=== PATIENT | female | born 1990 | race Caucasian/White ===

== ENCOUNTER 2017-11-25 01:52 | Emergency (ER) | payer MEDICAID ==
[~2017-11-25] VITALS: Ht 167.6 cm; Wt 66.0 kg
[~2017-11-25 01:52] MED LIST: FLUT16SP10 NAS; HYDR-569 PO; IBUP-1985 PO; PHEN-824 PO
[2017-11-25] MEDS ORDERED: HYDR-3965 PO (03:03)
[2017-11-25] MEDS ORDERED: IBUP-1984 PO (03:04)
[2017-11-25] MEDS ORDERED: HYDROcodone/acetaminophen 10/325mg tab PO ONE (03:05)
[2017-11-25 03:25] VITALS: BP 119/58
== END 2017-11-25 03:25 | disposition home or self-care (01) ==
LOC: ER 01:52
DX: R10.2 Pelvic and perineal pain (principal); J45.909 Unspecified asthma, uncomplicated; Z85.89 Personal history of malignant neoplasm of other organs and systems; Z88.5 Allergy status to narcotic agent; Z79.899 Other long term (current) drug therapy
CPT/HCPCS: 99283

== ENCOUNTER 2018-01-23 18:33 | Emergency (ER) | payer MEDICAID ==
[~2018-01-23] VITALS: Ht 167.6 cm; Wt 64.5 kg
[2018-01-23 18:52] VITALS: BP 120/72
[2018-01-23 19:19] LABS: CLARITY,URINE CLOUDY (Clear); COLOR,URINE YELLOW (Yellow); GLUCOSE, URINE NEGATIVE (Neg); KETONES,URINE NEGATIVE (Neg); LEUKOCYTE ESTERASE ,URINE MODERATE (Neg); NITRITES, URINE POSITIVE (Neg); OCCULT BLOOD,URINE SMALL (Neg); PROTEIN,URINE 100 mg/dl (Neg); UROBILINOGEN,URINE 0.2 E.U/dL (0.2-1.0)
[2018-01-23 19:21] LABS: URINE HCG NEGATIVE (NEG)
[2018-01-23 19:27] LABS: UA COLLECTION TYPE CLN CATCH MIDSTREAM
[2018-01-23 19:28] LABS: BACTERIA,URINE 2+ /HPF (Neg); RBC,URINE 0-2 /HPF (0-2); SQUAMOUS EPITHELIAL CELL,UR MODERATE /LPF (FEW); WBC,URINE TNTC /HPF (0-4)
[2018-01-23] MEDS ORDERED: SULF1TAB49 PO (20:03)
== END 2018-01-23 20:08 | disposition home or self-care (01) ==
LOC: ER 18:36
DX: N39.0 Urinary tract infection, site not specified (principal); J45.909 Unspecified asthma, uncomplicated; F12.10 Cannabis abuse, uncomplicated
CPT/HCPCS: 81001; 81025; 87077; 87088; 87186; 99284

== ENCOUNTER 2018-01-28 17:53 | Emergency (ER) | payer MEDICAID ==
[~2018-01-28] VITALS: Ht 167.6 cm; Wt 65.0 kg
[~2018-01-28 17:53] MED LIST changes: +SULF1TAB49 PO
[2018-01-28 18:23] LABS: URINE HCG NEGATIVE (NEG)
[2018-01-28 18:25] LABS: CLARITY,URINE CLOUDY (Clear); COLOR,URINE YELLOW (Yellow); GLUCOSE, URINE NEGATIVE (Neg); KETONES,URINE NEGATIVE (Neg); LEUKOCYTE ESTERASE ,URINE MODERATE (Neg); NITRITES, URINE NEGATIVE (Neg); OCCULT BLOOD,URINE LARGE (Neg); PROTEIN,URINE 100 mg/dl (Neg); UROBILINOGEN,URINE 0.2 E.U/dL (0.2-1.0)
[2018-01-28 18:36] LABS: UA COLLECTION TYPE CLN CATCH MIDSTREAM
[2018-01-28 18:37] LABS: BACTERIA,URINE FEW /HPF (Neg); SQUAMOUS EPITHELIAL CELL,UR FEW /LPF (FEW); WBC CLUMPS,URINE FEW /HPF (NEGATIVE); WBC,URINE 20-30 /HPF (0-4)
[2018-01-28] MEDS ORDERED: PHEN-824 PO (18:50)
[2018-01-28] MEDS ORDERED: CEPH500C2 PO (18:50)
[2018-01-28] MEDS ORDERED: NAPR-56 PO (18:51)
[2018-01-28 18:54] VITALS: BP 114/74
== END 2018-01-28 18:55 | disposition home or self-care (01) ==
LOC: ER 17:54
DX: N39.0 Urinary tract infection, site not specified (principal); J45.909 Unspecified asthma, uncomplicated; F12.10 Cannabis abuse, uncomplicated; F17.200 Nicotine dependence, unspecified, uncomplicated; Z88.8 Allergy status to other drugs, medicaments and biological substances; Z79.899 Other long term (current) drug therapy
CPT/HCPCS: 81001; 81025; 87088; 99284

== ENCOUNTER 2018-04-07 11:02 | Emergency (ER) | payer MEDICAID ==
[~2018-04-07] VITALS: Ht 167.6 cm; Wt 63.0 kg
[~2018-04-07 11:02] MED LIST changes: -SULF1TAB49 PO
[2018-04-07 11:38] VITALS: BP 108/71
== END 2018-04-07 12:34 | disposition home or self-care (01) ==
LOC: ER 11:03
DX: F15.10 Other stimulant abuse, uncomplicated (principal); R20.2 Paresthesia of skin; F12.90 Cannabis use, unspecified, uncomplicated; J45.909 Unspecified asthma, uncomplicated; Z88.5 Allergy status to narcotic agent; Z79.899 Other long term (current) drug therapy
CPT/HCPCS: 99281

== ENCOUNTER 2018-08-11 19:16 | Emergency (ER) | payer MEDICAID ==
[~2018-08-11] VITALS: Ht 167.6 cm; Wt 61.0 kg
[~2018-08-11 19:16] MED LIST changes: +HYDR-4383 PO; -HYDR-569 PO
[2018-08-11 19:28] VITALS: BP 111/70
[2018-08-11] MEDS ORDERED: ibuprofen tablet 400 MG TABLET PO ONE (20:00)
[2018-08-11] MEDS ORDERED: TAM75C PO (20:01)
== END 2018-08-11 20:19 | disposition home or self-care (01) ==
LOC: ER 19:16
DX: R50.9 Fever, unspecified (principal); J45.909 Unspecified asthma, uncomplicated; F12.90 Cannabis use, unspecified, uncomplicated; F15.90 Other stimulant use, unspecified, uncomplicated; Z98.890 Other specified postprocedural states; Z88.5 Allergy status to narcotic agent; Z79.899 Other long term (current) drug therapy
CPT/HCPCS: 87502; 87503; 99284

== ENCOUNTER 2021-09-19 20:17 | Emergency (ER) | payer MEDICAID ==
[~2021-09-19] VITALS: Ht 167.6 cm; Wt 68.2 kg
[2021-09-19] MEDS ORDERED: CASIRIVIMAB/IMDEVIMAB inject. 10 ML in normal saline 100ml IV soln 100 ML IV ONE (20:55)
[2021-09-19] MEDS ORDERED: ALBU18HF2 INH (23:01)
[2021-09-19 23:06] VITALS: BP 112/68
== END 2021-09-19 23:07 | disposition home or self-care (01) ==
LOC: ER 20:17
DX: U07.1 COVID-19 (principal); J45.909 Unspecified asthma, uncomplicated; F12.10 Cannabis abuse, uncomplicated; F15.10 Other stimulant abuse, uncomplicated
CPT/HCPCS: 99284; J3490; M0243; Q0244

== ENCOUNTER 2022-06-23 03:12 | Emergency (ER) | payer MEDICAID ==
[~2022-06-23 03:12] MED LIST changes: +ALBU18HF2 INH
== END 2022-06-23 04:30 | disposition left against medical advice (07) ==
LOC: ER 03:12
DX: R10.9 Unspecified abdominal pain (principal); Z53.21 Procedure and treatment not carried out due to patient leaving prior to being seen by health care provider

== ENCOUNTER 2022-08-01 23:20 | Emergency (ER) | payer MEDICAID ==
[~2022-08-01] VITALS: Ht 167.6 cm; Wt 63.6 kg
[2022-08-01 23:27] VITALS: BP 170/85
[2022-08-01] MEDS ORDERED: LORazepam 2 mg/ml vial IV ONE (23:50)
[2022-08-01] MEDS ORDERED: normal saline 1000ML IV soln IVB ONE (23:50)
[2022-08-02 00:13] LABS: BASOPHILS % (AUTO) 0.5 % (0-1); EOSINOPHILS # (AUTO) 0.1 X10'3 (0-0.9); HEMATOCRIT 39.2 % (35.0-45.0); HEMOGLOBIN 13.7 g/dl (12.0-16.0); LYMPHOCYTES # (AUTO) 2.3 X10'3 (1.1-4.8); LYMPHOCYTES % (AUTO) 25.4 % (21-51); MEAN CORPUSCULAR HEMOGLOBIN 31.6 PG (27.0-31.0); MEAN CORPUSCULAR HGB CONC 34.8 g/dL (33.0-36.5); MEAN CORPUSCULAR VOLUME 90.6 FL (78-98); MEAN PLATELET VOLUME 8.2 FL (7.4-10.4); MONOCYTES # (AUTO) 0.6 X10'3 (0-0.9); MONOCYTES % (AUTO) 7.1 % (2-12); PLATELET COUNT 216 X10'3 (140-440); RED BLOOD COUNT 4.33 X10'6 (4.20-5.60); RED CELL DISTRIBUTION WIDTH 13.5 % (11.5-14.5); WHITE BLOOD COUNT 9.1 X10'3 (4.5-11.0)
[2022-08-02] MEDS ORDERED: ondansetron/PF 4mg/2ml inj IV ONE (00:25)
[2022-08-02 00:29] LABS: ALANINE AMINOTRANSFERASE 20 U/L (12-78); ALBUMIN 4.3 G/DL (3.4-5.0); ALBUMIN/GLOBULIN RATIO 1.4 (1.1-1.5); ALKALINE PHOSPHATASE 113 IU/L (46-116); ANION GAP 8 (8-16); ASPARTATE AMINO TRANSFERASE 21 U/L (10-37); BILIRUBIN,TOTAL 0.2 MG/DL (0.1-1.0); BLOOD UREA NITROGEN 12 MG/DL (7-18); BUN/CREATININE RATIO 16.4 (6.6-38.0); CALCIUM 9.6 MG/DL (8.5-10.1); CHLORIDE 101 MMOL/L (99-107); CREATININE 0.73 MG/DL (0.40-0.90); GLUCOSE 112 MG/DL (70-104); POTASSIUM 3.8 MMOL/L (3.5-5.1); SODIUM 138 MMOL/L (135-145); TOTAL CARBON DIOXIDE 28.8 MMOL/L (24-32); TOTAL PROTEIN 7.4 G/DL (6.4-8.2); eGFR > 90 ML/MIN
[2022-08-02] MEDS ORDERED: ketorolac trometh. 30mg/ml inj. IV ONE (01:40)
--- NOTE | 2022-08-02 02:12 | NUR ---
iv dc'd pt being discharged. dressing applied
== END 2022-08-02 02:14 | disposition home or self-care (01) ==
LOC: ER 23:21
DX: R51.9 Headache, unspecified (principal); F15.10 Other stimulant abuse, uncomplicated; J45.909 Unspecified asthma, uncomplicated; F12.10 Cannabis abuse, uncomplicated; Z88.5 Allergy status to narcotic agent; Z79.899 Other long term (current) drug therapy
CPT/HCPCS: 36415; 70450; 71045; 80053; 83880; 84484; 85025; 96361; 96374; 96375; 99285; J1885; J2060; J2405; J7030

== ENCOUNTER 2022-09-05 04:56 | Emergency (ER) | payer MEDICAID ==
[~2022-09-05] VITALS: Ht 167.6 cm; Wt 68.2 kg
[2022-09-05 05:36] VITALS: BP 110/80
== END 2022-09-05 11:52 | disposition left against medical advice (07) ==
LOC: ER 04:57
DX: K08.89 Other specified disorders of teeth and supporting structures (principal); Z53.21 Procedure and treatment not carried out due to patient leaving prior to being seen by health care provider

== ENCOUNTER 2022-09-15 13:52 | Emergency (ER) | payer MEDICAID | END 2022-09-15 15:05 | disposition left against medical advice (07) | LOC: ER 13:53 | DX: N93.9 Abnormal uterine and vaginal bleeding, unspecified (principal); Z53.21 Procedure and treatment not carried out due to patient leaving prior to being seen by health care provider ==

== ENCOUNTER 2022-10-21 14:03 | Emergency (ER) | payer MEDICAID ==
[~2022-10-21] VITALS: Ht 167.6 cm; Wt 63.6 kg
[2022-10-21 14:31] LABS: BASOPHILS % (AUTO) 0.5 % (0-1); EOSINOPHILS # (AUTO) 0.1 X10'3 (0-0.9); EOSINOPHILS % (AUTO) 1.1 % (0-6); HEMOGLOBIN 13.2 g/dl (12.0-16.0); LYMPHOCYTES # (AUTO) 3.2 X10'3 (1.1-4.8); LYMPHOCYTES % (AUTO) 36.4 % (21-51); MEAN CORPUSCULAR HEMOGLOBIN 29.4 PG (27.0-31.0); MEAN CORPUSCULAR HGB CONC 33.1 g/dL (33.0-36.5); MEAN CORPUSCULAR VOLUME 88.9 FL (78-98); MONOCYTES # (AUTO) 0.7 X10'3 (0-0.9); NEUTROPHILS # (AUTO) 4.8 X10'3 (1.8-7.7); PLATELET COUNT 317 X10'3 (140-440); RED BLOOD COUNT 4.49 X10'6 (4.20-5.60); RED CELL DISTRIBUTION WIDTH 13.7 % (11.5-14.5); WHITE BLOOD COUNT 8.9 X10'3 (4.5-11.0)
[2022-10-21 14:47] LABS: ALANINE AMINOTRANSFERASE 22 U/L (12-78); ALBUMIN 4.4 G/DL (3.4-5.0); ALBUMIN/GLOBULIN RATIO 1.5 (1.1-1.5); ALKALINE PHOSPHATASE 104 IU/L (46-116); ANION GAP 6 (8-16); ASPARTATE AMINO TRANSFERASE 17 U/L (10-37); BILIRUBIN,TOTAL 0.4 MG/DL (0.1-1.0); BLOOD UREA NITROGEN 17 MG/DL (7-18); BUN/CREATININE RATIO 23.9 (6.6-38.0); CALCIUM 9.7 MG/DL (8.5-10.1); CHLORIDE 99 MMOL/L (99-107); CREATININE 0.71 MG/DL (0.40-0.90); GLUCOSE 106 MG/DL (70-104); POTASSIUM 3.7 MMOL/L (3.5-5.1); SODIUM 136 MMOL/L (135-145); TOTAL CARBON DIOXIDE 31.3 MMOL/L (24-32); TOTAL PROTEIN 7.3 G/DL (6.4-8.2); eGFR > 90 ML/MIN
[2022-10-21 14:54] LABS: MAGNESIUM 2.3 MG/DL (1.5-2.4)
[2022-10-21 18:34] VITALS: BP 118/90
== END 2022-10-21 18:37 | disposition home or self-care (01) ==
LOC: ER 14:03
DX: R07.89 Other chest pain (principal); M79.602 Pain in left arm; F15.10 Other stimulant abuse, uncomplicated; J45.909 Unspecified asthma, uncomplicated; F17.200 Nicotine dependence, unspecified, uncomplicated; F12.90 Cannabis use, unspecified, uncomplicated; Z98.890 Other specified postprocedural states; Z88.5 Allergy status to narcotic agent; Z79.899 Other long term (current) drug therapy
CPT/HCPCS: 36415; 80053; 83735; 83880; 84484; 85025; 93005; 99284

== ENCOUNTER 2022-11-09 05:09 | Emergency (ER) | payer MEDICAID ==
[~2022-11-09] VITALS: Ht 167.6 cm; Wt 65.9 kg
[2022-11-09 06:06] LABS: COLOR,URINE YELLOW (Yellow); GLUCOSE, URINE NEGATIVE (Neg); KETONES,URINE TRACE mg/dl (Neg); LEUKOCYTE ESTERASE ,URINE MODERATE (Neg); NITRITES, URINE NEGATIVE (Neg); OCCULT BLOOD,URINE LARGE (Neg); PH,URINE 5.5 (4.8-8.0); PROTEIN,URINE 100 mg/dl (Neg); UROBILINOGEN,URINE 0.2 E.U/dL (0.2-1.0)
[2022-11-09 06:15] LABS: CLARITY,URINE CLOUDY (Clear); UA COLLECTION TYPE CLN CATCH MIDSTREAM
--- NOTE | 2022-11-09 06:20 | NUR ---
Pt refusing to get into gown. Pt reports PTSD from previous bad experiences. Pt did not elaborate on specifics of incident
[2022-11-09 06:21] LABS: WBC,URINE TNTC /HPF (0-4)
[2022-11-09 06:22] LABS: BACTERIA,URINE 3+ /HPF (Neg); MUCUS STRANDS NONE SEEN /LPF (Neg); SQUAMOUS EPITHELIAL CELL,UR MODERATE /LPF (FEW); WBC CLUMPS,URINE MODERATE /HPF (NEGATIVE)
[2022-11-09] MEDS ORDERED: simethicone 125mg capsule PO SCH (06:30)
[2022-11-09 06:35] LABS: URINE HCG NEGATIVE (NEG)
[2022-11-09 07:02] VITALS: BP 125/105
[2022-11-09] MEDS ORDERED: NITR100C6 PO (07:19)
[2022-11-09 07:24] LABS: ALANINE AMINOTRANSFERASE 18 U/L (12-78); ALBUMIN 3.8 G/DL (3.4-5.0); ALBUMIN/GLOBULIN RATIO 1.4 (1.1-1.5); ALKALINE PHOSPHATASE 88 IU/L (46-116); ANION GAP 6 (8-16); ASPARTATE AMINO TRANSFERASE 21 U/L (10-37); BILIRUBIN,TOTAL 0.4 MG/DL (0.1-1.0); BLOOD UREA NITROGEN 17 MG/DL (7-18); CALCIUM 8.8 MG/DL (8.5-10.1); CHLORIDE 104 MMOL/L (99-107); CREATININE 0.81 MG/DL (0.40-0.90); GLUCOSE 105 MG/DL (70-104); POTASSIUM 3.4 MMOL/L (3.5-5.1); SODIUM 140 MMOL/L (135-145); TOTAL CARBON DIOXIDE 29.6 MMOL/L (24-32); TOTAL PROTEIN 6.6 G/DL (6.4-8.2); eGFR 83 ML/MIN
[2022-11-09 07:34] LABS: BASOPHILS % (AUTO) 0.3 % (0-1); EOSINOPHILS # (AUTO) 0.1 X10'3 (0-0.9); EOSINOPHILS % (AUTO) 0.8 % (0-6); HEMATOCRIT 34.4 % (35.0-45.0); HEMOGLOBIN 11.6 g/dl (12.0-16.0); LYMPHOCYTES # (AUTO) 1.9 X10'3 (1.1-4.8); LYMPHOCYTES % (AUTO) 21.8 % (21-51); MEAN CORPUSCULAR HGB CONC 33.7 g/dL (33.0-36.5); MEAN CORPUSCULAR VOLUME 88.8 FL (78-98); MEAN PLATELET VOLUME 7.4 FL (7.4-10.4); MONOCYTES # (AUTO) 0.6 X10'3 (0-0.9); MONOCYTES % (AUTO) 7.2 % (2-12); NEUTROPHILS # (AUTO) 6.1 X10'3 (1.8-7.7); NEUTROPHILS % (AUTO) 69.9 % (42-75); PLATELET COUNT 279 X10'3 (140-440); RED BLOOD COUNT 3.87 X10'6 (4.20-5.60); WHITE BLOOD COUNT 8.7 X10'3 (4.5-11.0)
== END 2022-11-09 07:35 | disposition left against medical advice (07) ==
LOC: ER 05:10
DX: N39.0 Urinary tract infection, site not specified (principal); R10.9 Unspecified abdominal pain; J45.909 Unspecified asthma, uncomplicated; F12.10 Cannabis abuse, uncomplicated; F15.10 Other stimulant abuse, uncomplicated; Z88.5 Allergy status to narcotic agent; Z79.899 Other long term (current) drug therapy; Z79.1 Long term (current) use of non-steroidal anti-inflammatories (NSAID)
CPT/HCPCS: 36415; 80053; 81001; 81025; 85025; 99283

== ENCOUNTER 2022-12-18 07:14 | Emergency (ER) | payer MEDICAID ==
[~2022-12-18] VITALS: Ht 167.6 cm; Wt 61.0 kg
[~2022-12-18 07:14] MED LIST changes: +NITR100C6 PO
[2022-12-18 07:25] VITALS: BP 131/89
--- NOTE | 2022-12-18 08:48 | NUR ---
Patient states she will go to urgent care instead.
[2022-12-18 08:56] LABS: URINE HCG NEGATIVE (NEG)
[2022-12-18 09:04] LABS: CLARITY,URINE CLOUDY (Clear); COLOR,URINE YELLOW (Yellow); GLUCOSE, URINE NEGATIVE (Neg); KETONES,URINE NEGATIVE (Neg); LEUKOCYTE ESTERASE ,URINE MODERATE (Neg); NITRITES, URINE POSITIVE (Neg); OCCULT BLOOD,URINE LARGE (Neg); PROTEIN,URINE 100 mg/dl (Neg); UROBILINOGEN,URINE 0.2 E.U/dL (0.2-1.0)
[2022-12-18 09:10] LABS: UA COLLECTION TYPE CLN CATCH MIDSTREAM
[2022-12-18 09:11] LABS: BACTERIA,URINE 3+ /HPF (Neg); MUCUS STRANDS NONE SEEN /LPF (Neg); SQUAMOUS EPITHELIAL CELL,UR FEW /LPF (FEW); WBC,URINE TNTC /HPF (0-4)
== END 2022-12-18 08:49 | disposition home or self-care (01) ==
LOC: ER 07:15
DX: R30.0 Dysuria (principal); R35.0 Frequency of micturition; R31.9 Hematuria, unspecified; Z53.21 Procedure and treatment not carried out due to patient leaving prior to being seen by health care provider
CPT/HCPCS: 81001; 81025; 87077; 87088; 87186; 99281